=== PATIENT | female | born 1980 | race Caucasian/White ===

== ENCOUNTER 2018-06-26 13:14 | Outpatient (CLI) | payer MEDICAID ==
--- NOTE | 2018-06-26 15:22 | MMO ---
Bilateral MAMMO Bilat Diag [facility]. CLINICAL HISTORY: Patient is 38 years old and is seen for diagnostic exam and palpable abnormality in the right breast. The patient has the following family history of breast cancer: mother, at age 38 and maternal aunt. The patient has no personal history of cancer. VIEWS: The views performed were: bilateral craniocaudal with tomosynthesis; bilateral mediolateral oblique with tomosynthesis; and bilateral mediolateral. FILMS COMPARED: The present examination has been compared to a prior imaging study performed at [facility] on 06/26/2018. MAMMOGRAM FINDINGS: There are scattered fibroglandular densities. No mammographic abnormality is seen at the site of palpable concern (11-12:00) right breast. A small cyst is seen on US. There are no suspicious masses, suspicious calcifications, or new areas of architectural distortion. IMPRESSION: THERE IS NO MAMMOGRAPHIC EVIDENCE OF MALIGNANCY. AGE APPROPRIATE SCREENING BASED ON RISK FACTORS IS RECOMMENDED. THE RESULTS OF THIS EXAM WERE SENT TO THE PATIENT. ACR BI-RADS Category 2 - Benign finding MAMMOGRAPHY NOTE: 1. A negative mammogram report should not delay a biopsy if a dominant of clinically suspicious mass is present. 2. Approximately 10% to 15% of breast cancers are not detected by mammography. 3. Adenosis and dense breasts may obscure an underlying neoplasm.
--- NOTE | 2018-06-26 15:36 | ULT ---
RIGHT BREAST ULTRASOUND: HISTORY: Palpable abnormality in the right breast at 11-12 o'clock position. FINDINGS: Sonographic evaluation of the right upper breast was performed at the 11 and 12 o'clock positions. A 6 x 4 x 2 mm cyst is seen at the 12 o'clock position 6 cm from the nipple. IMPRESSION: BIRADS category 2, benign findings. Age-appropriate screening based on risk factors is recommended. POS: OFF
== END 2018-06-26 13:15 | disposition home or self-care (01) ==
LOC: BICMAMMO 13:14
PROVIDERS: ATTEND Nurse Practitioner Family
DX: N63.10 Unspecified lump in the right breast, unspecified quadrant (principal); N64.3 Galactorrhea not associated with childbirth; Z80.3 Family history of malignant neoplasm of breast
CPT/HCPCS: 77066; G0279

== ENCOUNTER 2018-09-03 10:34 | Outpatient (CLI) | payer OTHER ==
[~2018-09-03 10:34] MED LIST: Gadobenate Dimeglumine 529 MG/1 ML (20ML VIAL) ONE
--- NOTE | 2018-09-03 14:28 | MRI ---
MRI ABDOMEN WITH AND WITHOUT IV CONTRAST: INDICATIONS: Abnormality seen on prior CT scan with history of weight loss, right upper quadrant pain, and adenoma tous polyp. History of cholecystectomy. COMPARISON: CT abdomen and pelvis dated 07/09/2018. CONTRAST: MultiHance 15 mL. FINDINGS: There is diffuse fatty infiltration of the liver. No focal signal abnormality or region of abnormal enhancement is grossly evident within the liver. A very small subcentimeter cyst is seen within segm ent 5 of the right hepatic lobe. The liver is enlarged, measuring 24.3 cm in length. The pancreas, adrenal glands, kidneys, and spleen appear within normal limits. The spleen is normal i n size, measuring 11.2 cm. No enlarged lymph nodes are evident. No bone marrow signal abnormality is evident. A tiny amount of fluid is seen within Salazar's pouch. IMPRESSION: 1. Fatty liver and hepatomegaly. 2. Minimal free fluid within Salazar's pouch. POS: [facility]
== END 2018-09-03 10:35 | disposition home or self-care (01) ==
LOC: SCSMRI 10:34
PROVIDERS: ATTEND Physician Assistant Medical
DX: D12.6 Benign neoplasm of colon, unspecified (principal); R10.11 Right upper quadrant pain; R63.4 Abnormal weight loss; R93.3 Abnormal findings on diagnostic imaging of other parts of digestive tract; R19.7 Diarrhea, unspecified; K76.0 Fatty (change of) liver, not elsewhere classified; R16.0 Hepatomegaly, not elsewhere classified
CPT/HCPCS: 74183; A9577

== ENCOUNTER 2018-10-09 07:50 | Day surgery (SDC) | payer OTHER ==
[2018-10-08 12:07] VITALS: BMI 20.3
[2018-10-09 08:07] LABS: #Eosinphils 0.1 thou/uL (0.0-0.7); #Monocytes 0.5 thou/uL (0.11-0.59); #Neutrophils 8.4 thou/uL (1.40-6.50); %Eosinophils 1.2 % (0.0-10.0); %Monocytes 4.9 % (0.0-10.0); %Neutrophils 83.9 % (42.0-75.0); Hemoglobin 14.4 g/dL (12.0-16.0); Mean Corpuscular HGB CONC 33.5 g/dL (32.0-36.0); Mean Corpuscular Hemoglobin 28.9 pg (27.0-31.0); Mean Corpuscular Volume 86.4 fL (78.0-98.0); Mean Platelet Volume 7.1 fL (7.4-10.4); Platelet Count 339 thou/uL (130-400); RBC Distribution Width 13.1 % (11.5-14.5); Red Blood Cell (RBC) Count 4.98 mill/uL (4.20-5.40)
[2018-10-09 08:13] LABS: INR-International Normal Ratio 0.9; PTT 24.4 SEC (22.9-36.1); Prothrombin Time 12.5 SEC (12.0-14.7)
[2018-10-09 08:55] VITALS: BP 138/97; TEMP 98
[2018-10-09] MEDS ORDERED: Sodium Bicarbonate 2.5 MEQ/5 ML VIAL ONE (09:21)
[2018-10-09] MEDS ORDERED: Lidocaine 1% PF 5 ML VIAL ONE (09:21)
--- NOTE | 2018-10-09 11:01 | ULT ---
Sonographic guided random hepatic biopsy HISTORY: Hepatomegaly. Liver disease. FINDINGS: After explaining the procedure and answering all questions, sonographic survey shows liver right lobe to extend below the anterior ribs. Sterile technique, buffered local anesthesia, sonographic guidance, and a right mid abdomen subcostal approach were used to carefully advance a 17-gauge trocar needle into the liver. A total of 2 18-gauge core biopsy specimens were obtained and eventually submitted to pathology for evaluation. Ne edle was removed. No evidence of complication. Patient tolerated the procedure well and was eventually dismissed in good condition. IMPRESSION: Technically successful sonographic guided liver biopsy. Pathology is pending.
== END 2018-10-09 10:40 | disposition home or self-care (01) ==
LOC: ULT 07:50
PROVIDERS: ATTEND Physician Assistant Medical
PROC: 0FB13ZX Excision of Right Lobe Liver, Percutaneous Approach, Diagnostic (ICD-10-PCS; principal; 2018-10-09)
DX: K76.0 Fatty (change of) liver, not elsewhere classified (principal); I10 Essential (primary) hypertension; F17.210 Nicotine dependence, cigarettes, uncomplicated; L65.9 Nonscarring hair loss, unspecified; R63.0 Anorexia; Z68.20 Body mass index [BMI] 20.0-20.9, adult; Z88.0 Allergy status to penicillin; Z79.899 Other long term (current) drug therapy
CPT/HCPCS: 36415; 47000; 76942; 85025; 85610; 85730; 88307; 88313; J2001

== ENCOUNTER 2019-11-18 08:02 | Outpatient (CLI) | payer OTHER ==
[2019-11-18] MEDS ORDERED: Magnevist 469MG/ML 20 ML VIAL ONE (09:41)
--- NOTE | 2019-11-18 10:38 | MRI ---
MRI ABDOMEN WITH AND WITHOUT CONTRAST: History Enlarged liver. Right upper quadrant pain. COMPARISON: Ultrasound 02/04/2019. FINDINGS: No pericardial effusion. No pleural effusion. No hydronephrosis. Anatomic variant and elongation of the right lobe of the liver was tongue-like of the right lobe anny uring 25 cm in length. This is unchanged from the comparison examination. The remainder of the live r is normal. No intrahepatic or extrahepatic biliary dilatation. No abnormal enhancing mass. The aortic contour is normal. No retroperitoneal or periaortic adenopathy. Gallbladder is absent. The spleen measures 12.5 cm in length. No pancreatic ductal dilatation. The aortic contour is normal. There is a very small 5 mm cyst hepatic segment 4B as well as a 5 mm flash-filling hemangioma segment nearly abutting the capsule. IMPRESSION: 1. 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 This is unchanged and a benign entity. 2. Splenic size upper limits of normal measuring 12.5 cm in length, unchanged to comparison examinat ion and is likely a normal variant in this patient. No underlying mass. 3. No acute inflammatory process within the abdomen. POS: [facility]
== END 2019-11-18 08:03 | disposition home or self-care (01) ==
LOC: BICMRI 08:02
PROVIDERS: ATTEND Physician Assistant Medical
DX: R10.11 Right upper quadrant pain (principal); R93.3 Abnormal findings on diagnostic imaging of other parts of digestive tract; R16.0 Hepatomegaly, not elsewhere classified
CPT/HCPCS: 74183; A9579

== ENCOUNTER 2020-03-09 10:00 | Outpatient (CLI) | payer OTHER ==
--- NOTE | 2020-03-09 12:43 | MMO ---
Bilateral MAMMO Bilat Screen [facility]. CLINICAL HISTORY: Patient is 40 years old and is seen for screening. The patient has the following family history of breast cancer: mother, at age 38 and maternal aunt. The patient has no personal history of cancer. VIEWS: The views performed were: bilateral craniocaudal and bilateral mediolateral oblique. FILMS COMPARED: The present examination has been compared to a prior imaging study performed at [facility] on 06/26/2018. This study has been interpreted with the assistance of computer-aided detection. MAMMOGRAM FINDINGS: The breasts are heterogeneously dense, which could obscure a lesion on mammography. There are no suspicious masses, suspicious calcifications, or new areas of architectural distortion. IMPRESSION: THERE IS NO MAMMOGRAPHIC EVIDENCE OF MALIGNANCY. A ROUTINE FOLLOW-UP MAMMOGRAM IN 1 YEAR IS RECOMMENDED. ACR BI-RADS Category 1 - Negative MAMMOGRAPHY NOTE: 1. A negative mammogram report should not delay a biopsy if a dominant of clinically suspicious mass is present. 2. Approximately 10% to 15% of breast cancers are not detected by mammography. 3. Adenosis and dense breasts may obscure an underlying neoplasm. Reported by: FRAN CUEVAS MD Electonically Signed: [id number]
== END 2020-03-09 10:01 | disposition home or self-care (01) ==
LOC: BICMAMMO 10:00
PROVIDERS: ATTEND Family Medicine
DX: Z12.31 Encounter for screening mammogram for malignant neoplasm of breast (principal); Z80.3 Family history of malignant neoplasm of breast
CPT/HCPCS: 77067

== ENCOUNTER 2021-02-15 08:39 | Outpatient (CLI) | payer MEDICARE, MEDICAID | END 2021-02-15 08:40 | disposition home or self-care (01) | LOC: BICCT 08:39 | PROVIDERS: ATTEND Physician Assistant Medical | DX: R63.4 Abnormal weight loss (principal); R19.7 Diarrhea, unspecified; R16.0 Hepatomegaly, not elsewhere classified; R10.11 Right upper quadrant pain; K76.0 Fatty (change of) liver, not elsewhere classified; R91.1 Solitary pulmonary nodule; N85.8 Other specified noninflammatory disorders of uterus; Z90.710 Acquired absence of both cervix and uterus; Z90.49 Acquired absence of other specified parts of digestive tract | CPT/HCPCS: 74177 ==

== ENCOUNTER 2021-02-23 17:24 | Emergency (ER) | payer MEDICARE, MEDICAID ==
[2021-02-23 18:32] LABS: #Eosinphils 0.1 thou/uL (0.0-0.7); #Lymphocytes 0.7 thou/uL (1.20-3.40); #Monocytes 0.3 thou/uL (0.11-0.59); #Neutrophils 2.9 thou/uL (1.40-6.50); %Basophils 0.9 % (0.0-1.0); %Eosinophils 2.9 % (0.0-10.0); %Lymphocytes 16.7 % (21.0-51.0); %Monocytes 7.4 % (0.0-10.0); %Neutrophils 72.2 % (42.0-75.0); Hemoglobin 13.6 g/dL (12.0-16.0); Mean Corpuscular HGB CONC 35.4 g/dL (32.0-36.0); Mean Corpuscular Volume 90.2 fL (78.0-98.0); Mean Platelet Volume 7.2 fL (7.4-10.4); Platelet Count 249 thou/uL (130-400); RBC Distribution Width 12.3 % (11.5-14.5); Red Blood Cell (RBC) Count 4.25 mill/uL (4.20-5.40)
[2021-02-23 18:44] LABS: Prothrombin Time 13.6 sec (12.0-14.7)
[2021-02-23 18:45] LABS: PTT 31.9 sec (22.9-36.1)
[2021-02-23 18:54] LABS: ALT (SGPT) 27 U/L (8-55); AST (SGOT) 26 U/L (5-34); Albumin 3.4 g/dL (3.5-5.0); Alkaline Phosphatase 59 U/L (40-110); Anion Gap 8 mmol/L (10-20); BUN (Urea Nitrogen) 5 mg/dL (7.0-18.7); Bilirubin, Total 0.3 mg/dL (0.2-1.2); CK (CPK) 64 U/L (29-168); Calc. Creatinine Clearance 0 mL/min (70-130); Calcium 9.1 mg/dL (7.8-10.44); Carbon Dioxide 28 mmol/L (22-29); Chloride 107 mmol/L (98-107); Globulin 2.2 g/dL (2.4-3.5); Glucose 97 mg/dL (70-105); Lipase 25 U/L (8-78); Magnesium 1.9 mg/dL (1.6-2.6); Potassium 3.2 mmol/L (3.5-5.1); Protein, Total 5.6 g/dL (6.0-8.3); Sodium 140 mmol/L (136-145)
[2021-02-23 20:18] LABS: Bacteria/HPF None Seen HPF (None Seen); Bilirubin Negative (Negative); Blood, Urine Trace (Negative); Clarity Clear (Clear); Glucose, Urine (Dipstick) Normal (Negative); Ketone, Urine Negative (Negative); Leukocyte Negative Leu/uL (Negative); Nitrite Negative (Negative); Protein, Urine (Dipstick) Negative (Neg-Trace); RBC/HPF 0-3 HPF (0-3); Specific Gravity, Urine 1.017 (1.002-1.036); Squamous Epithelial 0-3 HPF (0-3); Urobilinogen Normal mg/dL (Less than 2); WBC/HPF 0-3 HPF (0-3)
[2021-02-23] MEDS ORDERED: Ondansetron PF 4 MG/2 ML Vial ONE (20:35)
[2021-02-23] MEDS ORDERED: Morphine 4 MG/ML VIAL ONE (20:35)
== END 2021-02-23 21:45 | disposition home or self-care (01) ==
LOC: ERS 17:24
DX: R10.11 Right upper quadrant pain (principal); R10.31 Right lower quadrant pain; E87.6 Hypokalemia; F17.210 Nicotine dependence, cigarettes, uncomplicated; Z79.899 Other long term (current) drug therapy
CPT/HCPCS: 36415; 71045; 80053; 81003; 81015; 82550; 83690; 83735; 83880; 84484; 85025; 85610; 85730; 96374; 96375; J2270; J2405

== ENCOUNTER 2021-06-27 08:52 | Day surgery (SDC) | payer MEDICARE, MEDICAID ==
[2021-06-26 11:08] VITALS: BMI 17.2
[2021-06-27 09:16] LABS: PTT 30.2 sec (22.9-36.1); Prothrombin Time 13.1 sec (12.0-14.7)
[2021-06-27 09:32] VITALS: TEMP 97.7
== END 2021-06-27 12:12 | disposition home or self-care (01) ==
LOC: CT 08:52
PROVIDERS: ATTEND Internal Medicine Hematology & Oncology
PROC: 07DR3ZX Extraction of Iliac Bone Marrow, Percutaneous Approach, Diagnostic (ICD-10-PCS; principal; 2021-06-27)
DX: D72.810 Lymphocytopenia (principal); M35.9 Systemic involvement of connective tissue, unspecified; I10 Essential (primary) hypertension; F17.210 Nicotine dependence, cigarettes, uncomplicated; Z79.2 Long term (current) use of antibiotics; Z79.899 Other long term (current) drug therapy; Z88.0 Allergy status to penicillin; Z88.4 Allergy status to anesthetic agent
CPT/HCPCS: 20225; 77012; 85610; 85730; 88184; 88237; 88264; 88280

== ENCOUNTER 2021-08-02 09:57 | Outpatient (CLI) | payer MEDICARE, MEDICAID | END 2021-08-02 09:58 | disposition home or self-care (01) | LOC: BICULT 09:57 | PROVIDERS: ATTEND Family Medicine | DX: Z12.31 Encounter for screening mammogram for malignant neoplasm of breast (principal); R22.1 Localized swelling, mass and lump, neck; Z80.3 Family history of malignant neoplasm of breast | CPT/HCPCS: 76536; 77063; 77067 ==

== ENCOUNTER 2021-08-08 19:34 | Inpatient (IN) | payer MEDICARE, MEDICAID ==
[2021-08-08] MEDS ORDERED: Acetaminophen 500 MG TAB ONE (19:50)
[2021-08-08] MEDS ORDERED: Metoclopramide HCl 10 MG/2 ML VIAL ONE (19:50)
[2021-08-08] MEDS ORDERED: Ketorolac Tromethamine 30 MG/ML VIAL ONE (19:50)
[2021-08-08 20:18] LABS: #Eosinphils 0.1 thou/uL (0.0-0.7); #Lymphocytes 1.4 thou/uL (1.20-3.40); #Monocytes 0.5 thou/uL (0.11-0.59); #Neutrophils 3.7 thou/uL (1.40-6.50); %Basophils 0.1 % (0.0-1.0); %Eosinophils 2.6 % (0.0-10.0); %Lymphocytes 24.6 % (21.0-51.0); %Monocytes 8.4 % (0.0-10.0); %Neutrophils 64.3 % (42.0-75.0); Hemoglobin 15.5 g/dL (12.0-16.0); Mean Corpuscular HGB CONC 34.1 g/dL (32.0-36.0); Mean Corpuscular Hemoglobin 31.2 pg (27.0-31.0); Mean Corpuscular Volume 91.5 fL (78.0-98.0); Mean Platelet Volume 7.6 fL (7.4-10.4); Platelet Count 255 thou/uL (130-400); RBC Distribution Width 11.8 % (11.5-14.5); Red Blood Cell (RBC) Count 4.97 mill/uL (4.20-5.40); White Blood Cell (WBC) Count 5.7 thou/uL (4.8-10.8)
[2021-08-08 20:40] LABS: ALT (SGPT) 36 U/L (8-55); AST (SGOT) 29 U/L (5-34); Alkaline Phosphatase 74 U/L (40-110); Anion Gap 14 mmol/L (10-20); BUN (Urea Nitrogen) 6 mg/dL (7.0-18.7); Bilirubin, Total 0.5 mg/dL (0.2-1.2); Calc. Creatinine Clearance 0 mL/min (70-130); Calcium 9.5 mg/dL (7.8-10.44); Carbon Dioxide 26 mmol/L (22-29); Chloride 106 mmol/L (98-107); Globulin 2.3 g/dL (2.4-3.5); Glucose 97 mg/dL (70-105); Potassium 3.5 mmol/L (3.5-5.1); Protein, Total 6.3 g/dL (6.0-8.3); Sodium 142 mmol/L (136-145)
[2021-08-09] MEDS ORDERED: Ondansetron PF 4 MG/2 ML Vial IVP PRN (00:34)
[2021-08-09] MEDS ORDERED: Senokot S 8.6-50 MG TAB PO PRN (00:34)
[2021-08-09] MEDS ORDERED: Acetaminophen 325 MG TAB PO PRN (00:34)
[2021-08-09 00:42] VITALS: BMI 17.9
[2021-08-09] MEDS ORDERED: Sodium Chloride 0.9% 1,000 ML IV SCH (00:45)
[2021-08-09] MEDS ORDERED: Midodrine HCl 5 MG TAB PO PRN (03:05)
[2021-08-09] MEDS ORDERED: Cyclobenzaprine 10 MG TAB PO PRN (03:07)
[2021-08-09] MEDS ORDERED: traMADol HCl 50 MG TAB PO PRN (03:07)
[2021-08-09 05:15] LABS: #Eosinphils 0.1 thou/uL (0.0-0.7); #Lymphocytes 0.9 thou/uL (1.20-3.40); #Monocytes 0.4 thou/uL (0.11-0.59); #Neutrophils 2.7 thou/uL (1.40-6.50); %Basophils 0.3 % (0.0-1.0); %Eosinophils 3.5 % (0.0-10.0); %Lymphocytes 21.7 % (21.0-51.0); %Monocytes 9.7 % (0.0-10.0); %Neutrophils 64.8 % (42.0-75.0); Hemoglobin 12.7 g/dL (12.0-16.0); Mean Corpuscular HGB CONC 33.4 g/dL (32.0-36.0); Mean Corpuscular Hemoglobin 30.9 pg (27.0-31.0); Mean Corpuscular Volume 92.6 fL (78.0-98.0); Mean Platelet Volume 7.7 fL (7.4-10.4); Platelet Count 193 thou/uL (130-400); RBC Distribution Width 11.7 % (11.5-14.5); Red Blood Cell (RBC) Count 4.11 mill/uL (4.20-5.40); White Blood Cell (WBC) Count 4.1 thou/uL (4.8-10.8)
[2021-08-09 05:30] LABS: Anion Gap 7 mmol/L (10-20); BUN (Urea Nitrogen) 6 mg/dL (7.0-18.7); Calc. Creatinine Clearance 117 mL/min (70-130); Calcium 8.2 mg/dL (7.8-10.44); Carbon Dioxide 28 mmol/L (22-29); Chloride 107 mmol/L (98-107); Glucose 87 mg/dL (70-105); Potassium 3.1 mmol/L (3.5-5.1); Sodium 139 mmol/L (136-145)
[2021-08-09 05:35] LABS: Cardiac Risk 9.1 (Less than 4.5)
[2021-08-09] MEDS ORDERED: Electrolyte Replacement Protocol 1 EACH FS SCH (08:45)
[2021-08-09] MEDS ORDERED: Heparin 5,000 UNITS/ML VIAL SC SCH (09:00)
[2021-08-09] MEDS ORDERED: Potassium Chloride 20 MEQ TAB PO SCH (09:00)
[2021-08-09 09:05] LABS: Magnesium 1.7 mg/dL (1.6-2.6); Phosphorus 3.7 mg/dL (2.3-4.7)
[2021-08-09] MEDS: Gabapentin 100 MG CAP PO SCH (09:49)
[2021-08-09] MEDS: Famotidine 20 MG TAB PO SCH ×2 (09:50→21:03)
[2021-08-09] MEDS ORDERED: Magnesium 2 GM/50 ML(in water) 2 GM in Premix Bag 1 BAG IVPB SCH (11:00)
[2021-08-09] MEDS ORDERED: Ergocalciferol 1.25 MG(50,000 UNITS) CAP PO SCH (14:30)
[2021-08-09] MEDS ORDERED: Gabapentin 300 MG CAP PO SCH ×2 (21:00)
[2021-08-10 05:14] LABS: #Eosinphils 0.2 thou/uL (0.0-0.7); #Monocytes 0.4 thou/uL (0.11-0.59); %Eosinophils 4.5 % (0.0-10.0); %Lymphocytes 22.1 % (21.0-51.0); %Monocytes 8.4 % (0.0-10.0); Hemoglobin 13.3 g/dL (12.0-16.0); Mean Corpuscular HGB CONC 33.8 g/dL (32.0-36.0); Mean Corpuscular Hemoglobin 31.3 pg (27.0-31.0); Mean Corpuscular Volume 92.6 fL (78.0-98.0); Mean Platelet Volume 7.8 fL (7.4-10.4); Platelet Count 192 thou/uL (130-400); RBC Distribution Width 11.8 % (11.5-14.5); Red Blood Cell (RBC) Count 4.24 mill/uL (4.20-5.40); White Blood Cell (WBC) Count 4.6 thou/uL (4.8-10.8)
[2021-08-10 05:36] LABS: Anion Gap 11 mmol/L (10-20); BUN (Urea Nitrogen) 7 mg/dL (7.0-18.7); Calc. Creatinine Clearance 121 mL/min (70-130); Calcium 8.5 mg/dL (7.8-10.44); Carbon Dioxide 28 mmol/L (22-29); Chloride 106 mmol/L (98-107); Glucose 84 mg/dL (70-105); Phosphorus 3.7 mg/dL (2.3-4.7); Potassium 3.8 mmol/L (3.5-5.1); Sodium 141 mmol/L (136-145)
[2021-08-10 07:40] VITALS: TEMP 98.5
[2021-08-10] MEDS ORDERED: Magnesium 2 GM/50 ML(in water) 2 GM in Premix Bag 1 BAG IVPB SCH (08:00)
[2021-08-10] MEDS ORDERED: Potassium Chloride 20 MEQ TAB PO SCH ×2 (08:30→17:00)
[2021-08-10] MEDS: Gabapentin 100 MG CAP PO SCH (08:39)
[2021-08-10] MEDS: Famotidine 20 MG TAB PO SCH (10:35)
[2021-08-10 11:52] VITALS: BP 112/70
[2021-08-16] MEDS ORDERED: Ergocalciferol 1.25 MG(50,000 UNITS) CAP PO SCH (09:00)
== END 2021-08-10 12:35 | disposition home or self-care (01) | DRG 312 ==
LOC: ERS 19:34 → NEURO 21:29 → OBSVTOIN 08-10 10:45
PROVIDERS: ADMIT Internal Medicine; ATTEND Internal Medicine
DX: R55 Syncope and collapse (principal); E88.40 Mitochondrial metabolism disorder, unspecified; M32.9 Systemic lupus erythematosus, unspecified; I08.1 Rheumatic disorders of both mitral and tricuspid valves; E87.6 Hypokalemia; E55.9 Vitamin D deficiency, unspecified; R29.6 Repeated falls; R16.0 Hepatomegaly, not elsewhere classified; M35.9 Systemic involvement of connective tissue, unspecified; F17.210 Nicotine dependence, cigarettes, uncomplicated; Z91.81 History of falling; Z88.0 Allergy status to penicillin; Z88.8 Allergy status to other drugs, medicaments and biological substances; Z79.899 Other long term (current) drug therapy; Z90.49 Acquired absence of other specified parts of digestive tract; Z98.890 Other specified postprocedural states; Z90.710 Acquired absence of both cervix and uterus; Z82.49 Family history of ischemic heart disease and other diseases of the circulatory system; Z83.3 Family history of diabetes mellitus; Z83.2 Family history of diseases of the blood and blood-forming organs and certain disorders involving the immune mechanism; Z80.1 Family history of malignant neoplasm of trachea, bronchus and lung
CPT/HCPCS: 36415; 70450; 70551; 71045; 80048; 80053; 80061; 83735; 84100; 84484; 85025; 93005; 93306; 93880; 95712; 95819; 95957; 96361; 96365; 96367; 96375; G0378; J1885; J2765; J3475; J7050

== ENCOUNTER 2021-10-01 18:32 | Emergency (ER) | payer MEDICARE, OTHER ==
[2021-10-01 19:32] LABS: #Eosinphils 0.2 thou/uL (0.0-0.7); #Lymphocytes 0.9 thou/uL (1.20-3.40); #Monocytes 0.4 thou/uL (0.11-0.59); #Neutrophils 2.9 thou/uL (1.40-6.50); %Basophils 0.8 % (0.0-1.0); %Eosinophils 4.7 % (0.0-10.0); %Lymphocytes 20.7 % (21.0-51.0); %Monocytes 9.3 % (0.0-10.0); %Neutrophils 64.5 % (42.0-75.0); Hemoglobin 12.7 g/dL (12.0-16.0); Mean Corpuscular Hemoglobin 31.3 pg (27.0-31.0); Mean Corpuscular Volume 89.4 fL (78.0-98.0); Mean Platelet Volume 7.9 fL (7.4-10.4); Platelet Count 216 thou/uL (130-400); RBC Distribution Width 11.7 % (11.5-14.5); Red Blood Cell (RBC) Count 4.04 mill/uL (4.20-5.40); White Blood Cell (WBC) Count 4.5 thou/uL (4.8-10.8)
[2021-10-01 19:59] LABS: ALT (SGPT) 31 U/L (8-55); AST (SGOT) 25 U/L (5-34); Albumin 3.8 g/dL (3.5-5.0); Alkaline Phosphatase 49 U/L (40-110); Anion Gap 13 mmol/L (10-20); BUN (Urea Nitrogen) Less than 4 mg/dL (7.0-18.7); Bilirubin, Total 0.6 mg/dL (0.2-1.2); Calc. Creatinine Clearance 0 mL/min (70-130); Calcium 8.8 mg/dL (7.8-10.44); Carbon Dioxide 24 mmol/L (22-29); Chloride 107 mmol/L (98-107); Estimated GFR 113; Globulin 2.2 g/dL (2.4-3.5); Glucose 93 mg/dL (70-105); Magnesium 1.8 mg/dL (1.6-2.6); Potassium 3.3 mmol/L (3.5-5.1); Sodium 141 mmol/L (136-145)
[2021-10-01] MEDS ORDERED: Fentanyl 100 MCG/2 ML VIAL ONE ×2 (20:07→21:17)
[2021-10-01] MEDS ORDERED: Potassium Chloride 20 MEQ/100 ML PREMIX BAG ONE (21:21)
[2021-10-01] MEDS ORDERED: Potassium Chloride 20 MEQ TAB ONE (21:22)
[2021-10-01] MEDS ORDERED: Magnesium Oxide 400 MG TAB PO SCH (21:45)
== END 2021-10-01 23:54 | disposition left against medical advice (07) ==
LOC: ERS 18:32
DX: R07.9 Chest pain, unspecified (principal); F17.210 Nicotine dependence, cigarettes, uncomplicated
CPT/HCPCS: 36415; 71045; 80053; 83735; 84484; 85025; 85379; 93005; 96374; 96376; J3010; J3480

== ENCOUNTER 2022-06-19 14:52 | Outpatient (CLI) | payer MEDICARE | END 2022-06-19 14:53 | disposition home or self-care (01) | LOC: SCSMRI 14:52 | PROVIDERS: ATTEND Family Medicine | DX: M54.12 Radiculopathy, cervical region (principal); M47.812 Spondylosis without myelopathy or radiculopathy, cervical region; M48.02 Spinal stenosis, cervical region | CPT/HCPCS: 36415; 72141; 86361 ==

== ENCOUNTER 2022-10-14 08:17 | Outpatient (CLI) | payer MEDICARE | END 2022-10-14 08:18 | disposition home or self-care (01) | LOC: BICMAMMO 08:17 | PROVIDERS: ATTEND Family Medicine | DX: Z12.31 Encounter for screening mammogram for malignant neoplasm of breast (principal); N63.10 Unspecified lump in the right breast, unspecified quadrant; Z80.3 Family history of malignant neoplasm of breast | CPT/HCPCS: 77063; 77067 ==

== ENCOUNTER 2022-10-16 10:50 | Outpatient (CLI) | payer MEDICARE | END 2022-10-16 10:51 | disposition home or self-care (01) | LOC: BICULT 10:50 | PROVIDERS: ATTEND Family Medicine | DX: N63.10 Unspecified lump in the right breast, unspecified quadrant (principal) ==

== ENCOUNTER 2022-10-31 18:18 | Inpatient (IN) | payer MEDICARE ==
[2022-10-31 19:02] LABS: #Basophils 0.1 thou/uL (0.0-0.2); #Eosinphils 1.5 thou/uL (0.0-0.7); #Monocytes 0.7 thou/uL (0.11-0.59); #Neutrophils 4.4 thou/uL (1.40-6.50); %Basophils 1.3 % (0.0-1.0); %Eosinophils 19.4 % (0.0-10.0); %Lymphocytes 15.1 % (21.0-51.0); %Monocytes 8.4 % (0.0-10.0); %Neutrophils 55.5 % (42.0-75.0); Hematocrit 38.9 % (36.0-47.0); Hemoglobin 13.3 g/dL (12.0-16.0); Mean Corpuscular HGB CONC 34.2 g/dL (32.0-36.0); Mean Corpuscular Hemoglobin 30.2 pg (27.0-31.0); Mean Corpuscular Volume 88.2 fl (78.0-98.0); Mean Platelet Volume 10.1 fL (7.4-10.4); Platelet Count 266 10x3/uL (130-400); RBC Distribution Width 12.3 % (11.5-14.5); Red Blood Cell (RBC) Count 4.41 mill/uL (4.20-5.40); White Blood Cell (WBC) Count 7.9 10x3/uL (4.8-10.8)
[2022-10-31 19:25] LABS: ALT (SGPT) 19 U/L (8-55); AST (SGOT) 17 U/L (5-34); Alkaline Phosphatase 42 U/L (40-110); Anion Gap 11 mmol/L (10-20); BUN (Urea Nitrogen) 9 mg/dL (7.0-18.7); Bilirubin, Total 0.3 mg/dL (0.2-1.2); Calc. Creatinine Clearance 0 mL/min (70-130); Calcium 9.5 mg/dL (7.8-10.44); Carbon Dioxide 24 mmol/L (22-29); Chloride 106 mmol/L (98-107); Estimated GFR 111; Globulin 2.2 g/dL (2.4-3.5); Glucose 90 mg/dL (70-105); Potassium 3.9 mmol/L (3.5-5.1); Protein, Total 6.2 g/dL (6.0-8.3); Sodium 137 mmol/L (136-145)
[2022-10-31] MEDS ORDERED: Morphine 4 MG/ML VIAL ONE ×2 (20:40→22:27)
[2022-10-31] MEDS ORDERED: Ondansetron PF 4 MG/2 ML Vial ONE (20:41)
[2022-10-31 22:54] LABS: Bacteria/HPF None Seen HPF (None Seen); Bilirubin Negative (Negative); Blood, Urine Negative (Negative); CAUTI Indications for Culture Pelvic or flank pain; Clarity Clear (Clear); Glucose, Urine (Dipstick) Normal (Negative); Ketone, Urine Negative (Negative); Leukocyte Negative Leu/uL (Negative); Nitrite Negative (Negative); Protein, Urine (Dipstick) Negative (Neg-Trace); RBC/HPF 0-3 HPF (0-3); Specific Gravity, Urine 1.007 (1.002-1.036); Squamous Epithelial 0-3 HPF (0-3); Urobilinogen Normal mg/dL (Less than 2); WBC/HPF 0-3 HPF (0-3)
[2022-10-31 22:56] LABS: Urine Culture Reflex No No
[2022-10-31] MEDS ORDERED: Loperamide HCl 2 MG CAP PO PRN (23:26)
[2022-10-31] MEDS ORDERED: Acetaminophen 325 MG TAB PO PRN (23:26)
[2022-10-31] MEDS ORDERED: Calcium Carbonate 500 MG ChewTAB PO PRN (23:26)
[2022-10-31] MEDS ORDERED: Ondansetron ODT 4 MG TAB PO PRN (23:26)
[2022-10-31] MEDS ORDERED: Ondansetron PF 4 MG/2 ML Vial IVP PRN (23:26)
[2022-10-31] MEDS ORDERED: Dextrose 5%-Lactated Ringers 1,000 ML IV SCH (23:30)
[2022-11-01] MEDS: Morphine 2 MG/ML VIAL SLOW IVP PRN ×6 (00:52→21:52)
[2022-11-01] MEDS: Cyclobenzaprine 10 MG TAB PO PRN (00:54)
[2022-11-01 06:00] LABS: #Basophils 0.1 thou/uL (0.0-0.2); #Eosinphils 1.3 thou/uL (0.0-0.7); #Monocytes 0.5 thou/uL (0.11-0.59); #Neutrophils 3.2 thou/uL (1.40-6.50); %Basophils 1.4 % (0.0-1.0); %Eosinophils 21.4 % (0.0-10.0); %Lymphocytes 14.2 % (21.0-51.0); %Monocytes 8.8 % (0.0-10.0); Hematocrit 35.4 % (36.0-47.0); Hemoglobin 11.9 g/dL (12.0-16.0); Mean Corpuscular HGB CONC 33.6 g/dL (32.0-36.0); Mean Corpuscular Hemoglobin 30.7 pg (27.0-31.0); Mean Platelet Volume 10.2 fL (7.4-10.4); Platelet Count 219 10x3/uL (130-400); RBC Distribution Width 12.6 % (11.5-14.5); Red Blood Cell (RBC) Count 3.87 mill/uL (4.20-5.40); White Blood Cell (WBC) Count 5.9 10x3/uL (4.8-10.8)
[2022-11-01 06:04] LABS: Mean Corpuscular Volume 91.5 fl (78.0-98.0)
[2022-11-01 06:29] LABS: Anion Gap 8 mmol/L (10-20); BUN (Urea Nitrogen) 8 mg/dL (7.0-18.7); Calc. Creatinine Clearance 112 mL/min (70-130); Calcium 8.7 mg/dL (7.8-10.44); Carbon Dioxide 28 mmol/L (22-29); Chloride 105 mmol/L (98-107); Estimated GFR 111; Glucose 88 mg/dL (70-105); Potassium 3.5 mmol/L (3.5-5.1); Sodium 137 mmol/L (136-145)
[2022-11-01 08:41] VITALS: BMI 18.1
[2022-11-01] MEDS ORDERED: Famotidine 20 MG TAB PO SCH (09:00)
[2022-11-01] MEDS: Famotidine/PF 20 mg/2ml Vial SLOW IVP SCH ×2 (09:26→21:52)
[2022-11-01] MEDS: Multivitamin W/ Minerals 1 TAB PO SCH (09:26)
[2022-11-01] MEDS: metroNIDAZOLE 500 MG in Premix Bag 1 BAG IVPB SCH ×2 (09:27→17:00)
[2022-11-01] MEDS ORDERED: Iopamidol-370 76% 500 ML MDV (1 ML CHARGE) ONE (12:55)
[2022-11-01] MEDS: HYDROcodone/Acetaminophen 5/325 mg Tablet PO PRN (16:59)
[2022-11-01] MEDS: Sodium Chloride 0.9% 1,000 ML IV SCH (21:52)
[2022-11-02] MEDS: metroNIDAZOLE 500 MG in Premix Bag 1 BAG IVPB SCH ×2 (00:11→08:57)
[2022-11-02] MEDS: HYDROcodone/Acetaminophen 5/325 mg Tablet PO PRN ×3 (00:11→19:29)
[2022-11-02] MEDS: Morphine 2 MG/ML VIAL SLOW IVP PRN ×3 (01:33→21:46)
[2022-11-02] MEDS: Sodium Chloride 0.9% 1,000 ML IV SCH ×3 (05:44→21:33)
[2022-11-02] MEDS: Multivitamin W/ Minerals 1 TAB PO SCH (08:57)
[2022-11-02] MEDS: Famotidine/PF 20 mg/2ml Vial SLOW IVP SCH (08:57)
[2022-11-02] MEDS ORDERED: Ciprofloxacin 500 MG TAB PO SCH ×2 (13:00→20:00)
[2022-11-02] MEDS: Cyclobenzaprine 10 MG TAB PO PRN ×2 (15:18→22:00)
[2022-11-02] MEDS: Famotidine 20 MG TAB PO SCH (20:23)
[2022-11-02] MEDS ORDERED: metroNIDAZOLE 500 MG TAB PO SCH (21:00)
[2022-11-02] MEDS ORDERED: Dicyclomine 20 MG/2 ML VIAL IM PRN (22:10)
[2022-11-02] MEDS: fentaNYL 50 mcg/mL 1 mL Vial SLOW IVP PRN (23:13)
[2022-11-02 23:46] LABS: ALT (SGPT) 51 U/L (8-55); AST (SGOT) 93 U/L (5-34); Albumin 4.2 g/dL (3.5-5.0); Alkaline Phosphatase 69 U/L (40-110); Anion Gap 12 mmol/L (10-20); BUN (Urea Nitrogen) 7 mg/dL (7.0-18.7); Bilirubin, Total 0.5 mg/dL (0.2-1.2); Calc. Creatinine Clearance 101 mL/min (70-130); Calcium 9.6 mg/dL (7.8-10.44); Carbon Dioxide 26 mmol/L (22-29); Chloride 105 mmol/L (98-107); Estimated GFR 102; Globulin 2.4 g/dL (2.4-3.5); Glucose 92 mg/dL (70-105); Lipase 307 U/L (8-78); Potassium 3.6 mmol/L (3.5-5.1); Protein, Total 6.6 g/dL (6.0-8.3); Sodium 139 mmol/L (136-145)
[2022-11-03] MEDS ORDERED: Lactated Ringer's 500 ML IV SCH (00:15)
[2022-11-03] MEDS ORDERED: Lorazepam 2 MG/ML VIAL SLOW IVP PRN (00:31)
[2022-11-03] MEDS: fentaNYL 50 mcg/mL 1 mL Vial SLOW IVP PRN ×5 (00:58→23:06)
[2022-11-03 05:27] LABS: #Basophils 0.1 thou/uL (0.0-0.2); #Eosinphils 0.8 thou/uL (0.0-0.7); #Monocytes 0.6 thou/uL (0.11-0.59); #Neutrophils 3.7 thou/uL (1.40-6.50); %Basophils 1.3 % (0.0-1.0); %Monocytes 9.9 % (0.0-10.0); %Neutrophils 65.8 % (42.0-75.0); Hematocrit 35.4 % (36.0-47.0); Hemoglobin 11.9 g/dL (12.0-16.0); Mean Corpuscular HGB CONC 33.6 g/dL (32.0-36.0); Mean Corpuscular Hemoglobin 30.6 pg (27.0-31.0); Mean Platelet Volume 9.9 fL (7.4-10.4); Platelet Count 200 10x3/uL (130-400); RBC Distribution Width 12.2 % (11.5-14.5); Red Blood Cell (RBC) Count 3.89 mill/uL (4.20-5.40); White Blood Cell (WBC) Count 5.6 10x3/uL (4.8-10.8)
[2022-11-03 05:56] LABS: ALT (SGPT) 207 U/L (8-55); AST (SGOT) 401 U/L (5-34); Albumin 3.5 g/dL (3.5-5.0); Alkaline Phosphatase 130 U/L (40-110); Anion Gap 11 mmol/L (10-20); BUN (Urea Nitrogen) 8 mg/dL (7.0-18.7); Bilirubin, Total 0.4 mg/dL (0.2-1.2); Calc. Creatinine Clearance 112 mL/min (70-130); Calcium 8.5 mg/dL (7.8-10.44); Carbon Dioxide 25 mmol/L (22-29); Chloride 106 mmol/L (98-107); Estimated GFR 111; Globulin 1.9 g/dL (2.4-3.5); Glucose 86 mg/dL (70-105); Potassium 3.6 mmol/L (3.5-5.1); Protein, Total 5.4 g/dL (6.0-8.3); Sodium 138 mmol/L (136-145)
[2022-11-03] MEDS: metroNIDAZOLE 500 MG in Premix Bag 1 BAG IVPB SCH ×3 (06:39→20:21)
[2022-11-03] MEDS: Sodium Chloride 0.9% 1,000 ML IV SCH ×2 (06:40)
[2022-11-03] MEDS ORDERED: Bisacodyl 10 MG SUPP PR SCH (08:00)
[2022-11-03] MEDS: Multivitamin W/ Minerals 1 TAB PO SCH (08:13)
[2022-11-03] MEDS: Saccharomyces boulardii 250 MG CAP PO SCH (08:13)
[2022-11-03] MEDS: Famotidine 20 MG TAB PO SCH ×2 (08:13→20:21)
[2022-11-03] MEDS: Morphine 2 MG/ML VIAL SLOW IVP PRN ×2 (16:45→20:20)
[2022-11-03 20:31] VITALS: TEMP 98.1
[2022-11-04 05:34] LABS: ALT (SGPT) 133 U/L (8-55); AST (SGOT) 92 U/L (5-34); Albumin 3.5 g/dL (3.5-5.0); Alkaline Phosphatase 108 U/L (40-110); Anion Gap 10 mmol/L (10-20); BUN (Urea Nitrogen) 8 mg/dL (7.0-18.7); Bilirubin, Total 0.3 mg/dL (0.2-1.2); Calc. Creatinine Clearance 106 mL/min (70-130); Calcium 8.9 mg/dL (7.8-10.44); Carbon Dioxide 27 mmol/L (22-29); Chloride 106 mmol/L (98-107); Estimated GFR 107; Glucose 84 mg/dL (70-105); Potassium 4.2 mmol/L (3.5-5.1); Protein, Total 5.5 g/dL (6.0-8.3); Sodium 139 mmol/L (136-145)
[2022-11-04] MEDS: metroNIDAZOLE 500 MG in Premix Bag 1 BAG IVPB SCH (05:42)
[2022-11-04] MEDS: Morphine 2 MG/ML VIAL SLOW IVP PRN ×2 (05:42→09:47)
[2022-11-04 07:18] VITALS: BP 101/66
[2022-11-04] MEDS: Saccharomyces boulardii 250 MG CAP PO SCH (08:02)
[2022-11-04] MEDS: Multivitamin W/ Minerals 1 TAB PO SCH (08:02)
[2022-11-04] MEDS: Famotidine 20 MG TAB PO SCH (08:02)
[2022-11-04] MEDS: fentaNYL 50 mcg/mL 1 mL Vial SLOW IVP PRN (08:05)
[2022-11-05 16:40] LABS: Adenovirus F 40-41 Not Detected (Not Detected); Astrovirus Not Detected (Not Detected); C. difficile toxin A+B Not Detected (Not Detected); Campylobacter by PCR Not Detected (Not Detected); Cryptosporidium Not Detected (Not Detected); Cyclospora cayetanensis Not Detected (Not Detected); Entamoeba histolytica Not Detected (Not Detected); Enteroaggregative E. coli Not Detected (Not Detected); Enteropathogenic E. coli Not Detected (Not Detected); Enterotoxigenic E. coli Not Detected (Not Detected); Giardia lamblia Not Detected (Not Detected); Norovirus GI-GII Not Detected (Not Detected); Plesiomonas shigelloides Not Detected (Not Detected); Rotavirus A Not Detected (Not Detected); Salmonella Not Detected (Not Detected); Sapovirus Not Detected (Not Detected); Shiga-toxin-producing E coli Not Detected (Not Detected); Shigella/Enteroinvasive E coli Not Detected (Not Detected); Vibrio Not Detected (Not Detected); Vibrio cholerae Not Detected (Not Detected); Yersinia enterocolitica Not Detected (Not Detected)
== END 2022-11-04 11:32 | disposition home or self-care (01) | DRG 392 ==
LOC: ERS 18:18 → SJJU 22:47 → INTOOBSV 22:47 → OBSVTOIN 11-01 14:05
PROVIDERS: ADMIT Student in an Organized Health Care Education/Training Program; ATTEND Internal Medicine
DX: K52.9 Noninfective gastroenteritis and colitis, unspecified (principal); E74.02 Pompe disease; E88.40 Mitochondrial metabolism disorder, unspecified; D84.9 Immunodeficiency, unspecified; R16.0 Hepatomegaly, not elsewhere classified; G89.29 Other chronic pain; K59.00 Constipation, unspecified; Z88.0 Allergy status to penicillin; Z88.8 Allergy status to other drugs, medicaments and biological substances; Z79.899 Other long term (current) drug therapy; Z98.891 History of uterine scar from previous surgery; Z90.49 Acquired absence of other specified parts of digestive tract; Z90.710 Acquired absence of both cervix and uterus; Z87.891 Personal history of nicotine dependence
CPT/HCPCS: 36415; 74177; 76705; 80048; 80053; 81001; 83690; 85025; 87177; 87328; 87329; 87507; 96365; 96374; 96375; 96376; G0378; J0744; J2060; J2270; J2272; J2405; J3010; J7050; J7120; Q0162; Q9967; S0028

== ENCOUNTER 2022-11-08 08:16 | Outpatient (CLI) | payer MEDICARE ==
[2022-11-08] MEDS ORDERED: Magnevist 469MG/ML 20 ML VIAL ONE (15:47)
== END 2022-11-08 08:17 | disposition home or self-care (01) ==
LOC: BICMRI 08:16
PROVIDERS: ATTEND Physician Assistant Medical
DX: R16.0 Hepatomegaly, not elsewhere classified (principal); R10.10 Upper abdominal pain, unspecified; R74.8 Abnormal levels of other serum enzymes; R93.89 Abnormal findings on diagnostic imaging of other specified body structures; E74.02 Pompe disease; K83.8 Other specified diseases of biliary tract
CPT/HCPCS: 74183; A9579

== ENCOUNTER 2022-11-10 00:50 | Emergency (ER) | payer MEDICARE ==
[2022-11-10] MEDS ORDERED: HYDROmorphone 0.5 MG/0.5 ML SYRINGE ONE (01:08)
[2022-11-10] MEDS ORDERED: Ketorolac Tromethamine 30 MG/ML VIAL ONE (01:09)
[2022-11-10] MEDS ORDERED: Ondansetron PF 4 MG/2 ML Vial ONE (01:09)
[2022-11-10] MEDS ORDERED: Haloperidol Lactate 5 MG/ML VIAL ONE (01:09)
[2022-11-10 01:35] LABS: Hematocrit 38.1 % (36.0-47.0); Hemoglobin 13.4 g/dL (12.0-16.0); Manual Diff?? YES; Mean Corpuscular HGB CONC 35.2 g/dL (32.0-36.0); Mean Corpuscular Hemoglobin 30.7 pg (27.0-31.0); Mean Corpuscular Volume 87.2 fl (78.0-98.0); Mean Platelet Volume 10.1 fL (7.4-10.4); Platelet Count 250 10x3/uL (130-400); RBC Distribution Width 12.2 % (11.5-14.5); Red Blood Cell (RBC) Count 4.37 mill/uL (4.20-5.40); White Blood Cell (WBC) Count 6.9 10x3/uL (4.8-10.8)
[2022-11-10 01:47] LABS: Delete Auto Diff?? YES
[2022-11-10 01:57] LABS: ALT (SGPT) 42 U/L (8-55); AST (SGOT) 25 U/L (5-34); Albumin 4.1 g/dL (3.5-5.0); Alkaline Phosphatase 70 U/L (40-110); Anion Gap 14 mmol/L (10-20); BUN (Urea Nitrogen) 8 mg/dL (7.0-18.7); Bilirubin, Total 0.4 mg/dL (0.2-1.2); Calc. Creatinine Clearance 0 mL/min (70-130); Calcium 9.7 mg/dL (7.8-10.44); Carbon Dioxide 24 mmol/L (22-29); Chloride 105 mmol/L (98-107); Estimated GFR 105; Globulin 2.4 g/dL (2.4-3.5); Glucose 95 mg/dL (70-105); Lipase 22 U/L (8-78); Potassium 3.7 mmol/L (3.5-5.1); Protein, Total 6.5 g/dL (6.0-8.3); Sodium 139 mmol/L (136-145)
[2022-11-10 02:01] LABS: Troponin I Less than 0.010 ng/mL (< 0.028)
[2022-11-10 02:06] LABS: Band 7 % (5-11); CellaVision Operator ID LAB.CLH1; Eosinophils 23 % (0-10); Lymphocytes 19 % (21-51); Monocytes 5 % (0-10); Neutrophil 46 % (42-75); Platelet Adequacy Comment Platelets Normal; Total Cell Count 101
[2022-11-10 02:47] LABS: Bacteria/HPF None Seen HPF (None Seen); Bilirubin Negative (Negative); Blood, Urine Negative (Negative); CAUTI Indications for Culture Pelvic or flank pain; Clarity Clear (Clear); Glucose, Urine (Dipstick) Normal (Negative); Ketone, Urine Negative (Negative); Leukocyte Negative Leu/uL (Negative); Nitrite Negative (Negative); Protein, Urine (Dipstick) Negative (Neg-Trace); RBC/HPF 0-3 HPF (0-3); Specific Gravity, Urine 1.006 (1.002-1.036); Squamous Epithelial 0-3 HPF (0-3); Urobilinogen Normal mg/dL (Less than 2); WBC/HPF None Seen HPF (0-3)
[2022-11-10 02:48] LABS: Urine Culture Reflex No No
[2022-11-10] MEDS ORDERED: Iopamidol-370 76% 500 ML MDV (1 ML CHARGE) ONE (08:49)
== END 2022-11-10 06:06 | disposition home or self-care (01) ==
LOC: ERS 00:50
DX: R10.9 Unspecified abdominal pain (principal); Z87.891 Personal history of nicotine dependence
CPT/HCPCS: 36415; 74177; 80053; 81001; 83690; 84484; 85025; 96374; 96375; J1170; J1630; J1885; J2405; Q9967

== ENCOUNTER 2022-11-27 18:18 | Emergency (ER) | payer MEDICARE ==
[~2022-11-27 18:18] MED LIST changes: -Gadobenate Dimeglumine 529 MG/1 ML (20ML VIAL) ONE; +Iopamidol-370 76% 500 ML MDV (1 ML CHARGE) ONE
[2022-11-27] MEDS ORDERED: Morphine 4 MG/ML VIAL ONE (19:43)
[2022-11-27] MEDS ORDERED: Ondansetron PF 4 MG/2 ML Vial ONE (19:43)
[2022-11-27 20:08] LABS: #Basophils 0.1 thou/uL (0.0-0.2); #Eosinphils 0.2 thou/uL (0.0-0.7); #Monocytes 0.5 thou/uL (0.11-0.59); #Neutrophils 4.2 thou/uL (1.40-6.50); %Basophils 1.1 % (0.0-1.0); %Eosinophils 4.1 % (0.0-10.0); %Lymphocytes 11.5 % (21.0-51.0); %Monocytes 8.1 % (0.0-10.0); Hemoglobin 12.6 g/dL (12.0-16.0); Mean Corpuscular Hemoglobin 30.8 pg (27.0-31.0); Platelet Count 231 10x3/uL (130-400); RBC Distribution Width 11.9 % (11.5-14.5); Red Blood Cell (RBC) Count 4.09 mill/uL (4.20-5.40); White Blood Cell (WBC) Count 5.6 10x3/uL (4.8-10.8)
[2022-11-27 20:30] LABS: ALT (SGPT) 27 U/L (8-55); AST (SGOT) 57 U/L (5-34); Albumin 3.7 g/dL (3.5-5.0); Alkaline Phosphatase 87 U/L (40-110); Anion Gap 12 mmol/L (10-20); BUN (Urea Nitrogen) 11 mg/dL (7.0-18.7); Bilirubin, Total 0.6 mg/dL (0.2-1.2); Calc. Creatinine Clearance 0 mL/min (70-130); Calcium 8.9 mg/dL (7.8-10.44); Carbon Dioxide 23 mmol/L (22-29); Chloride 106 mmol/L (98-107); Estimated GFR 111; Globulin 2.1 g/dL (2.4-3.5); Glucose 90 mg/dL (70-105); Lipase 45 U/L (8-78); Potassium 3.7 mmol/L (3.5-5.1); Protein, Total 5.8 g/dL (6.0-8.3); Sodium 137 mmol/L (136-145)
== END 2022-11-27 21:51 | disposition home or self-care (01) ==
LOC: ERS 18:18
DX: G89.18 Other acute postprocedural pain (principal); R10.11 Right upper quadrant pain; E16.2 Hypoglycemia, unspecified; I95.9 Hypotension, unspecified; M32.9 Systemic lupus erythematosus, unspecified; Z87.891 Personal history of nicotine dependence
CPT/HCPCS: 36415; 74177; 80053; 83690; 85025; 93005; 96374; 96375; J2270; J2405; Q9967

== ENCOUNTER 2022-12-03 12:18 | Emergency (ER) | payer MEDICARE ==
[2022-12-03] MEDS ORDERED: Pantoprazole 40 MG VIAL ONE (12:54)
[2022-12-03] MEDS ORDERED: Morphine 4 MG/ML VIAL ONE ×2 (12:54→14:38)
[2022-12-03] MEDS ORDERED: Ondansetron PF 4 MG/2 ML Vial ONE (12:54)
[2022-12-03 12:58] LABS: #Basophils 0.1 thou/uL (0.0-0.2); #Eosinphils 0.2 thou/uL (0.0-0.7); #Monocytes 0.3 thou/uL (0.11-0.59); #Neutrophils 3.2 thou/uL (1.40-6.50); %Basophils 1.7 % (0.0-1.0); %Eosinophils 4.1 % (0.0-10.0); %Lymphocytes 17.3 % (21.0-51.0); %Monocytes 7.1 % (0.0-10.0); %Neutrophils 69.6 % (42.0-75.0); Hematocrit 37.7 % (36.0-47.0); Mean Corpuscular HGB CONC 34.5 g/dL (32.0-36.0); Mean Corpuscular Hemoglobin 30.2 pg (27.0-31.0); Mean Corpuscular Volume 87.7 fl (78.0-98.0); Mean Platelet Volume 10.6 fL (7.4-10.4); Platelet Count 313 10x3/uL (130-400); RBC Distribution Width 11.9 % (11.5-14.5); White Blood Cell (WBC) Count 4.6 10x3/uL (4.8-10.8)
[2022-12-03 13:24] LABS: ALT (SGPT) 34 U/L (8-55); AST (SGOT) 26 U/L (5-34); Albumin 4.8 g/dL (3.5-5.0); Alkaline Phosphatase 86 U/L (40-110); Anion Gap 13 mmol/L (10-20); BUN (Urea Nitrogen) 9 mg/dL (7.0-18.7); Bilirubin, Total 0.6 mg/dL (0.2-1.2); Calc. Creatinine Clearance 0 mL/min (70-130); Calcium 10.5 mg/dL (7.8-10.44); Carbon Dioxide 27 mmol/L (22-29); Chloride 102 mmol/L (98-107); Estimated GFR 97; Globulin 2.8 g/dL (2.4-3.5); Glucose 98 mg/dL (70-105); Lipase 15 U/L (8-78); Potassium 3.7 mmol/L (3.5-5.1); Protein, Total 7.6 g/dL (6.0-8.3); Sodium 138 mmol/L (136-145)
[2022-12-03 13:26] LABS: Troponin I Less than 0.010 ng/mL (< 0.028)
== END 2022-12-03 16:11 | disposition home or self-care (01) ==
LOC: ERS 12:18
DX: R10.13 Epigastric pain (principal); Z87.891 Personal history of nicotine dependence
CPT/HCPCS: 71045; 74177; 80053; 83605; 83690; 83880; 84484; 84702; 85025; 96374; 96375; 96376; C9113; J2270; J2405; Q9967

== ENCOUNTER 2023-02-01 23:20 | Emergency (ER) | payer MEDICARE, OTHER ==
[2023-02-01 23:50] LABS: #Basophils 0.1 thou/uL (0.0-0.2); #Monocytes 0.6 thou/uL (0.11-0.59); #Neutrophils 4.3 thou/uL (1.40-6.50); %Basophils 1.9 % (0.0-1.0); %Eosinophils 12.8 % (0.0-10.0); %Lymphocytes 19.6 % (21.0-51.0); %Monocytes 7.4 % (0.0-10.0); %Neutrophils 58.2 % (42.0-75.0); Hematocrit 36.9 % (36.0-47.0); Hemoglobin 12.3 g/dL (12.0-16.0); Mean Corpuscular HGB CONC 33.3 g/dL (32.0-36.0); Mean Corpuscular Hemoglobin 28.1 pg (27.0-31.0); Mean Corpuscular Volume 84.4 fl (78.0-98.0); Mean Platelet Volume 10.5 fL (7.4-10.4); Platelet Count 297 10x3/uL (130-400); RBC Distribution Width 12.1 % (11.5-14.5); Red Blood Cell (RBC) Count 4.37 mill/uL (4.20-5.40); White Blood Cell (WBC) Count 7.4 10x3/uL (4.8-10.8)
[2023-02-01] MEDS ORDERED: Cefepime 2 GM VIAL ONE (23:57)
[2023-02-01] MEDS ORDERED: Sodium Chloride 0.9% 100 ML ONE (23:58)
[2023-02-02 00:17] LABS: Troponin I Less than 0.010 ng/mL (< 0.028)
[2023-02-02 00:19] LABS: ALT (SGPT) 11 U/L (8-55); AST (SGOT) 14 U/L (5-34); Alkaline Phosphatase 57 U/L (40-110); Anion Gap 16 mmol/L (10-20); BUN (Urea Nitrogen) 9 mg/dL (7.0-18.7); Bilirubin, Total 0.5 mg/dL (0.2-1.2); Calc. Creatinine Clearance 0 mL/min (70-130); Calcium 9.3 mg/dL (7.8-10.44); Carbon Dioxide 21 mmol/L (22-29); Chloride 106 mmol/L (98-107); Estimated GFR 93; Globulin 2.7 g/dL (2.4-3.5); Glucose 95 mg/dL (70-105); Lipase 60 U/L (8-78); Potassium 3.3 mmol/L (3.5-5.1); Protein, Total 6.7 g/dL (6.0-8.3); Sodium 140 mmol/L (136-145)
[2023-02-02] MEDS ORDERED: Morphine 4 MG/ML VIAL ONE ×2 (01:06→03:33)
[2023-02-02] MEDS ORDERED: Ketorolac Tromethamine 30 MG/ML VIAL ONE (01:06)
[2023-02-02] MEDS ORDERED: metroNIDAZOLE 500 MG/100 ML BAG ONE (01:06)
[2023-02-02 03:08] LABS: Lactic Acid 0.7 mmol/L (0.5-2.2)
== END 2023-02-02 03:49 | disposition short-term general hospital (02) ==
LOC: ERS 23:20
DX: R10.13 Epigastric pain (principal); Z87.891 Personal history of nicotine dependence
CPT/HCPCS: 74177; 80053; 83605; 83690; 84484; 85025; 87040; 87077; 87149 ×2; 93005; 96365; 96367; 96375; 99285; J3010; 36415; J0692; J1885; J2270; J3490; Q9967

== ENCOUNTER 2023-02-07 17:19 | Inpatient (IN) | payer MEDICARE, OTHER ==
[2023-02-07 17:43] VITALS: BMI 17.2
[2023-02-07] MEDS ORDERED: Ondansetron PF 4 MG/2 ML Vial IVP PRN (18:16)
[2023-02-07] MEDS ORDERED: Acetaminophen 650 MG Suppository PR PRN (18:16)
[2023-02-07] MEDS ORDERED: Acetaminophen 325 MG TAB PO PRN (18:16)
[2023-02-07] MEDS ORDERED: Senokot S 8.6-50 MG TAB PO PRN (18:16)
[2023-02-07] MEDS ORDERED: Ondansetron ODT 4 MG TAB PO PRN (18:16)
[2023-02-07] MEDS: Famotidine 20 MG TAB PO SCH (19:55)
[2023-02-07] MEDS: Morphine 2 MG/ML VIAL SLOW IVP PRN (19:56)
[2023-02-07 20:03] LABS: #Basophils 0.1 thou/uL (0.0-0.2); #Eosinphils 0.9 thou/uL (0.0-0.7); #Monocytes 0.4 thou/uL (0.11-0.59); %Basophils 1.9 % (0.0-1.0); %Eosinophils 22.1 % (0.0-10.0); %Lymphocytes 18.4 % (21.0-51.0); %Monocytes 9.6 % (0.0-10.0); %Neutrophils 47.8 % (42.0-75.0); Hematocrit 37.7 % (36.0-47.0); Hemoglobin 12.4 g/dL (12.0-16.0); Mean Corpuscular HGB CONC 32.9 g/dL (32.0-36.0); Mean Corpuscular Hemoglobin 28.2 pg (27.0-31.0); Mean Corpuscular Volume 85.7 fl (78.0-98.0); Mean Platelet Volume 10.2 fL (7.4-10.4); Platelet Count 233 10x3/uL (130-400); RBC Distribution Width 12.2 % (11.5-14.5); White Blood Cell (WBC) Count 4.3 10x3/uL (4.8-10.8)
[2023-02-07 20:32] LABS: ALT (SGPT) 7 U/L (8-55); AST (SGOT) 14 U/L (5-34); Albumin 3.9 g/dL (3.5-5.0); Alkaline Phosphatase 57 U/L (40-110); Anion Gap 10 mmol/L (10-20); BUN (Urea Nitrogen) 6 mg/dL (7.0-18.7); Bilirubin, Total 0.4 mg/dL (0.2-1.2); Calc. Creatinine Clearance 105 mL/min (70-130); Calcium 9.1 mg/dL (7.8-10.44); Carbon Dioxide 24 mmol/L (22-29); Chloride 106 mmol/L (98-107); Estimated GFR 111; Globulin 2.5 g/dL (2.4-3.5); Glucose 103 mg/dL (70-105); Lipase 21 U/L (8-78); Potassium 4.2 mmol/L (3.5-5.1); Protein, Total 6.4 g/dL (6.0-8.3); Sodium 136 mmol/L (136-145)
[2023-02-07 20:58] LABS: Magnesium 2.3 mg/dL (1.6-2.6)
[2023-02-07] MEDS: Famotidine/PF 20 mg/2ml Vial SLOW IVP SCH (22:20)
[2023-02-07] MEDS: HYDROcodone/Acetaminophen 5/325 mg Tablet PO PRN (23:02)
[2023-02-08] MEDS: Morphine 2 MG/ML VIAL SLOW IVP PRN ×4 (01:32→22:16)
[2023-02-08] MEDS: HYDROcodone/Acetaminophen 5/325 mg Tablet PO PRN ×4 (04:50→19:28)
[2023-02-08 06:25] LABS: Anion Gap 10 mmol/L (10-20); BUN (Urea Nitrogen) 6 mg/dL (7.0-18.7); Calc. Creatinine Clearance 95 mL/min (70-130); Calcium 9.1 mg/dL (7.8-10.44); Carbon Dioxide 27 mmol/L (22-29); Chloride 103 mmol/L (98-107); Estimated GFR 100; Glucose 99 mg/dL (70-105); Potassium 4.2 mmol/L (3.5-5.1); Sodium 136 mmol/L (136-145)
[2023-02-08] MEDS: Famotidine 20 MG TAB PO SCH ×2 (09:36→19:28)
[2023-02-08] MEDS: Multivitamin W/ Minerals 1 TAB PO SCH (09:36)
[2023-02-08] MEDS: Famotidine/PF 20 mg/2ml Vial SLOW IVP SCH ×2 (09:37→20:14)
[2023-02-08] MEDS: Pancrelipase DR 12,000 1 CAP PO SCH ×4 (09:38→17:32)
[2023-02-08] MEDS: Dextrose 5%-Lactated Ringers 1,000 ML IV SCH (17:32)
[2023-02-08] MEDS: Naloxegol 12.5 MG TAB PO SCH (17:32)
[2023-02-09] MEDS: Dextrose 5%-Lactated Ringers 1,000 ML IV SCH (03:38)
[2023-02-09] MEDS ORDERED: Polyethylene Glycol 3350 17 GM Packet PO SCH (09:00)
[2023-02-09] MEDS: HYDROcodone/Acetaminophen 5/325 mg Tablet PO PRN (09:47)
[2023-02-09] MEDS: Multivitamin W/ Minerals 1 TAB PO SCH (09:49)
[2023-02-09] MEDS: Famotidine 20 MG TAB PO SCH (09:50)
[2023-02-09] MEDS: Pancrelipase DR 12,000 1 CAP PO SCH ×2 (09:50→12:12)
[2023-02-09] MEDS: Naloxegol 12.5 MG TAB PO SCH (09:53)
[2023-02-09] MEDS: Famotidine/PF 20 mg/2ml Vial SLOW IVP SCH (09:57)
[2023-02-09 16:49] VITALS: BP 126/82; TEMP 98.4
== END 2023-02-09 12:36 | disposition home or self-care (01) | DRG 440 ==
LOC: 2NO 17:19
PROVIDERS: ADMIT Hospitalist; ATTEND Family Medicine
DX: K86.1 Other chronic pancreatitis (principal); K59.00 Constipation, unspecified; R16.0 Hepatomegaly, not elsewhere classified; Z88.0 Allergy status to penicillin; Z88.8 Allergy status to other drugs, medicaments and biological substances; Z79.899 Other long term (current) drug therapy; Z79.2 Long term (current) use of antibiotics; Z98.890 Other specified postprocedural states
CPT/HCPCS: 36415; 80048; 80053; 83690; 83735; 85025; J2272

== ENCOUNTER 2023-04-04 21:42 | Emergency (ER) | payer OTHER, MEDICARE ==
[2023-04-04] MEDS ORDERED: Morphine 4 MG/ML VIAL ONE (21:50)
[2023-04-04] MEDS ORDERED: Ondansetron PF 4 MG/2 ML Vial ONE (22:09)
[2023-04-04 22:33] LABS: #Eosinphils 0.2 thou/uL (0.0-0.7); #Monocytes 0.8 thou/uL (0.11-0.59); #Neutrophils 5.4 thou/uL (1.40-6.50); %Basophils 0.3 % (0.0-1.0); %Eosinophils 2.3 % (0.0-10.0); %Lymphocytes 9.6 % (21.0-51.0); %Monocytes 10.9 % (0.0-10.0); %Neutrophils 76.6 % (42.0-75.0); Hematocrit 32.7 % (36.0-47.0); Hemoglobin 10.8 g/dL (12.0-16.0); Mean Corpuscular Hemoglobin 27.3 pg (27.0-31.0); Mean Corpuscular Volume 82.8 fl (78.0-98.0); Mean Platelet Volume 10.4 fL (7.4-10.4); Platelet Count 213 10x3/uL (130-400); RBC Distribution Width 14.4 % (11.5-14.5); Red Blood Cell (RBC) Count 3.95 mill/uL (4.20-5.40)
[2023-04-04 22:57] LABS: ALT (SGPT) 16 U/L (8-55); AST (SGOT) 21 U/L (5-34); Albumin 3.5 g/dL (3.5-5.0); Alkaline Phosphatase 61 U/L (40-110); Anion Gap 10 mmol/L (10-20); BUN (Urea Nitrogen) 7 mg/dL (7.0-18.7); Bilirubin, Total 0.2 mg/dL (0.2-1.2); Calc. Creatinine Clearance 0 mL/min (70-130); Calcium 8.3 mg/dL (7.8-10.44); Carbon Dioxide 25 mmol/L (22-29); Chloride 108 mmol/L (98-107); Estimated GFR 112; Globulin 2.3 g/dL (2.4-3.5); Glucose 100 mg/dL (70-105); Potassium 3.4 mmol/L (3.5-5.1); Protein, Total 5.8 g/dL (6.0-8.3); Sodium 140 mmol/L (136-145)
[2023-04-04 23:01] LABS: SARS-CoV-2 NAA Rapid Test DETECTED (NotDetected)
== END 2023-04-05 00:55 | disposition home or self-care (01) ==
LOC: ERS 21:42
DX: U07.1 COVID-19 (principal); Z87.891 Personal history of nicotine dependence
CPT/HCPCS: 36415; 71045; 80053; 83605; 85025; 87040; 96374; 96375; J2270; J2405

== ENCOUNTER 2023-04-06 13:04 | Emergency (ER) | payer OTHER, MEDICARE ==
[2023-04-06 13:55] LABS: Bacteria/HPF None Seen HPF (None Seen); Bilirubin Negative (Negative); Blood, Urine Negative (Negative); CAUTI Indications for Culture Fever or rigors; Clarity Clear (Clear); Glucose, Urine (Dipstick) Normal (Negative); Ketone, Urine Negative (Negative); Leukocyte Negative Leu/uL (Negative); Nitrite Negative (Negative); Protein, Urine (Dipstick) Negative (Neg-Trace); RBC/HPF 0-3 HPF (0-3); Specific Gravity, Urine 1.003 (1.002-1.036); Squamous Epithelial 0-3 HPF (0-3); Urobilinogen Normal mg/dL (Less than 2); WBC/HPF 0-3 HPF (0-3)
[2023-04-06 14:00] LABS: Urine Culture Reflex No No
[2023-04-06 14:03] LABS: #Basophils 0.1 thou/uL (0.0-0.2); #Eosinphils 0.3 thou/uL (0.0-0.7); #Monocytes 0.5 thou/uL (0.11-0.59); #Neutrophils 4.7 thou/uL (1.40-6.50); %Basophils 0.8 % (0.0-1.0); %Lymphocytes 11.5 % (21.0-51.0); %Monocytes 8.2 % (0.0-10.0); %Neutrophils 75.3 % (42.0-75.0); Hematocrit 38.5 % (36.0-47.0); Hemoglobin 12.7 g/dL (12.0-16.0); Mean Corpuscular Hemoglobin 27.5 pg (27.0-31.0); Mean Corpuscular Volume 83.5 fl (78.0-98.0); Platelet Count 288 10x3/uL (130-400); RBC Distribution Width 14.3 % (11.5-14.5); Red Blood Cell (RBC) Count 4.61 mill/uL (4.20-5.40); White Blood Cell (WBC) Count 6.2 10x3/uL (4.8-10.8)
[2023-04-06 14:25] LABS: ALT (SGPT) 22 U/L (8-55); AST (SGOT) 22 U/L (5-34); Albumin 4.3 g/dL (3.5-5.0); Alkaline Phosphatase 83 U/L (40-110); Anion Gap 14 mmol/L (10-20); BUN (Urea Nitrogen) 6 mg/dL (7.0-18.7); Bilirubin, Total 0.5 mg/dL (0.2-1.2); CK (CPK) 121 U/L (29-168); Calc. Creatinine Clearance 0 mL/min (70-130); Calcium 9.8 mg/dL (7.8-10.44); Carbon Dioxide 27 mmol/L (22-29); Chloride 103 mmol/L (98-107); Estimated GFR 110; Globulin 3.2 g/dL (2.4-3.5); Glucose 95 mg/dL (70-105); Lipase 18 U/L (8-78); Potassium 3.5 mmol/L (3.5-5.1); Protein, Total 7.5 g/dL (6.0-8.3); Sodium 140 mmol/L (136-145)
[2023-04-06 14:27] LABS: SARS-CoV-2 NAA Rapid Test DETECTED (NotDetected)
[2023-04-06 14:36] LABS: Troponin I Less than 0.010 ng/mL (< 0.028)
== END 2023-04-06 15:00 | disposition home or self-care (01) ==
LOC: ERS 13:04 → MERGE 13:04 → ERS 15:00
DX: U07.1 COVID-19 (principal); J12.82 Pneumonia due to coronavirus disease 2019; E86.0 Dehydration
CPT/HCPCS: 36415; 71045; 80053; 81001; 82550; 83605; 83690; 83880; 84484; 85025; 85379; 87040; 93005

== ENCOUNTER 2023-04-21 07:51 | Outpatient (CLI) | payer OTHER, MEDICARE | END 2023-04-21 07:52 | disposition home or self-care (01) | LOC: BICMAMMO 07:51 | PROVIDERS: ATTEND Family Medicine | DX: N63.10 Unspecified lump in the right breast, unspecified quadrant (principal) | CPT/HCPCS: G0279 ==

== ENCOUNTER 2025-01-31 14:42 | Emergency (ER) | payer BC, MEDICARE ==
[2025-01-31] MEDS ORDERED: Acetaminophen 500 MG TAB ONE (15:31)
[2025-01-31] MEDS ORDERED: Metoclopramide HCl 10 MG (2 mL) VIAL ONE (15:31)
[2025-01-31 16:01] LABS: #Basophils 0.07 10x3/uL (0.0-0.2); #Eosinophils 0.21 10x3/uL (0.0-0.7); #Monocytes 0.42 10x3/uL (0.11-0.59); #Neutrophils 2.52 10x3/uL (1.40-6.50); %Basophils 1.8 % (0.0-1.0); %Eosinophils 5.3 % (0.0-10.0); %Lymphocytes 18.8 % (21.0-51.0); %Monocytes 10.6 % (0.0-10.0); %Neutrophils 63.2 % (42.0-75.0); Hematocrit 38.3 % (36.0-47.0); Hemoglobin 13.0 g/dL (12.0-16.0); Mean Corpuscular Hemoglobin 29.1 pg (27.0-31.0); Mean Corpuscular Volume 85.7 fL (78.0-98.0); Platelet Count 256 10x3/uL (130-400); Red Blood Cell (RBC) Count 4.47 mill/uL (4.20-5.40); White Blood Cell (WBC) Count 3.98 10x3/uL (4.8-10.8)
[2025-01-31 16:14] LABS: INR-International Normal Ratio 1.1; PTT 31.0 sec (22.9-36.1); Prothrombin Time 14.2 sec (12.0-14.7)
[2025-01-31 16:24] LABS: ALT (SGPT) 12 U/L (Less than 34); AST (SGOT) 21 U/L (11-34); Albumin 4.3 g/dL (3.1-4.5); Alkaline Phosphatase 55 U/L (40-110); Anion Gap 13 mmol/L (10-20); BUN (Urea Nitrogen) 9 mg/dL (7.0-18.7); Bilirubin, Total 0.4 mg/dL (0.3-1.2); Calc. Creatinine Clearance 0 mL/min (70-130); Calcium 9.9 mg/dL (7.8-10.44); Carbon Dioxide 27 mmol/L (22-29); Chloride 102 mmol/L (98-107); Globulin 2.5 g/dL (2.4-3.5); Glucose 96 mg/dL (70-105); Potassium 3.8 mmol/L (3.5-5.1); Sodium 138 mmol/L (136-145)
== END 2025-01-31 18:05 | disposition home or self-care (01) ==
LOC: ERS 14:42
DX: G43.809 Other migraine, not intractable, without status migrainosus (principal); R29.700 NIHSS score 0
CPT/HCPCS: 70496; 70498; 80053; 84484; 85025; 85610; 85730; 93005; 94760; 96374; 96375; J2765; Q9967